=== PATIENT | male | born 1980 | race American Indian/Alaskan Native ===

== ENCOUNTER 2017-10-04 18:49 | Emergency (ER) | payer SELFPAY ==
[2017-10-04 18:55] VITALS: BP 149/108
[2017-10-04] MEDS ORDERED: NACL 0.9% 1000 ML 1,000 ML IV ONE (18:56)
[2017-10-04 19:29] LABS: Basophils # (Auto) 0.1 K/mm3 (0.0-0.1); Basophils % (Auto) 0.8 % (0.0-1.8); Eosinophils # (Auto) 0.2 K/mm3 (0.0-0.4); Eosinophils % (Auto) 1.9 % (0.0-4.3); Hematocrit 47.6 % (35.5-45.6); Hemoglobin 16.5 gm/dl (11.8-15.2); Lymphocytes # (Auto) 2.6 K/mm3 (1.2-5.4); Lymphocytes % (Auto) 28.7 % (13.4-35.0); Mean Corpuscular HGB Conc 35 % (32-34); Mean Corpuscular Hemoglobin 31 pg (28-32); Mean Corpuscular Volume 89 fl (84-94); Monocytes # (Auto) 0.4 K/mm3 (0.0-0.8); Monocytes % (Auto) 4.8 % (0.0-7.3); Platelet Count 310 K/mm3 (140-440); Red Blood Count 5.36 M/mm3 (3.65-5.03); Red Cell Distribution Width 13.8 % (13.2-15.2)
[2017-10-04 19:41] LABS: Partial Thromboplastin Time 27.1 Sec. (24.2-36.6)
[2017-10-04 19:52] LABS: Alanine Aminotransferase 35 units/L (7-56); Albumin 4.5 g/dL (3.9-5); BUN/Creatinine Ratio 12; Blood Urea Nitrogen 11 mg/dL (9-20); Calcium 9.3 mg/dL (8.4-10.2); Hemolysis Index 26; Lipase 21 units/L (13-60)
--- NOTE | 2017-10-04 20:38 | Emergency Department Report ---
HPI - General Chief Complaint: GI Bleed Time Seen by Provider: 10/04/17 20:07 - HPI HPI: Room 4 The patient is a 37-year-old male presenting with a chief complaint of hematochezia. The patient states several months ago he had one episode of blood in the stool but resolved. The patient states he never sought medical attention. The patient states last night and today he had 3 separate bowel movements or passing dark red blood. She denied rectal pain at that time. The patient states she's had mid epigastric abdominal pain for the past 2-3 months and makes him want to have a bowel movement. Patient also admits to heartburn for the same time frame. Incidentally the patient states he cleared his throat today and his sputum was dark brown prompting him to come to the emergency department. Patient denies having recent cough or fever. Location: Gastrointestinal system Duration: [See above] Quality: [See above] Severity: Moderate Modifying factors: [see above] Context: [see above] Mode of transportation: [not driving] ED Past Medical Hx - Past Medical History Previous Medical History?: No - Surgical History Past Surgical History?: No - Family History Family history: no significant - Social History Smoking Status: Current Every Day Smoker (1/7 pack per day) Substance Use Type: None (denies illicit drug use) - Medications Home Medications: Home Medications Medication Instructions Recorded Confirmed Last Taken Type Famotidine [Pepcid] 20 mg PO BID #30 tablet 10/04/17 Unknown Rx ED Review of Systems ROS: Stated complaint: BLOOD IN STOOL Other details as noted in HPI Constitutional: denies: fever Respiratory: other (brown sputum when clearing throat). denies: cough Cardiovascular: denies: chest pain Gastrointestinal: abdominal pain, hematochezia. denies: melena Genitourinary: denies: hematuria Physical Exam - Physical Exam Vital Signs: Vital Signs 10/04/17 18:50 Temperature 97.9 F Pulse Rate 82 Respiratory 18 Rate Blood Pressure 149/108 O2 Sat by Pulse 98 Oximetry Physical Exam: GENERAL: The patient is well-developed well-nourished male lying on stretcher not appearing to be in acute distress. [] HEENT: Normocephalic. Atraumatic. Extraocular motions are intact. Patient has moist mucous membranes. NECK: Supple. Trachea midline CHEST/LUNGS: Clear to auscultation. There is no respiratory distress noted. HEART/CARDIOVASCULAR: Regular. There is no tachycardia. There is no gallop rub or murmur. ABDOMEN: Abdomen is soft, nontender. Patient has normal bowel sounds. There is no abdominal distention. SKIN: There is no rash. There is no edema. There is no diaphoresis. NEURO: The patient is awake, alert, and oriented. The patient is cooperative. The patient has normal speech MUSCULOSKELETAL: There is no evidence of acute injury. RECTAL: Skin tag present. No external hemorrhoids seen. Faint guaiac positive brown stool ED Course Vital Signs 10/04/17 18:50 Temperature 97.9 F Pulse Rate 82 Respiratory 18 Rate Blood Pressure 149/108 O2 Sat by Pulse 98 Oximetry ED Medical Decision Making - Lab Data Result diagrams: 10/04/17 19:10 10/04/17 19:10 Laboratory Tests 10/04/17 10/04/17 10/04/17 19:10 19:10 19:10 WBC 9.2 RBC 5.36 H Hgb 16.5 H Hct 47.6 H MCV 89 MCH 31 MCHC 35 H RDW 13.8 Plt Count 310 Lymph % (Auto) 28.7 [place] % (Auto) 4.8 Eos % (Auto) 1.9 Baso % (Auto) 0.8 Lymph # 2.6 [place] # 0.4 Eos # 0.2 Baso # 0.1 Seg Neutrophils % 63.8 Seg Neutrophils # 5.9 PT 12.6 INR 0.90 APTT 27.1 D-Dimer < 136 Sodium 136 L Potassium 4.2 Chloride 97.7 L Carbon Dioxide 25 Anion Gap 18 BUN 11 Creatinine 0.9 Estimated GFR > 60 BUN/Creatinine Ratio 12 Glucose 102 H Calcium 9.3 Total Bilirubin 0.30 AST 24 ALT 35 Alkaline Phosphatase 71 Total Protein 7.2 Albumin 4.5 Albumin/Globulin Ratio 1.7 Lipase 21 Blood Type Antibody Screen 10/04/17 19:10 WBC RBC Hgb Hct MCV MCH MCHC RDW Plt Count Lymph % (Auto) [place] % (Auto) Eos % (Auto) Baso % (Auto) Lymph # [place] # Eos # Baso # Seg Neutrophils % Seg Neutrophils # PT INR APTT D-Dimer Sodium Potassium Chloride Carbon Dioxide Anion Gap BUN Creatinine Estimated GFR BUN/Creatinine Ratio Glucose Calcium Total Bilirubin AST ALT Alkaline Phosphatase Total Protein Albumin Albumin/Globulin Ratio Lipase Blood Type O POSITIVE Antibody Screen Negative - Radiology Data Radiology results: report reviewed (chest x-ray), image reviewed (chest x-ray) interpreted by me: Chest x-ray-no pneumothorax. Pulmonary nodule left upper lobe. - Differential Diagnosis internal hemorrhoids, peptic ulcer disease, pulmonary nodule, lung CA Critical care attestation.: If time is entered above; I have spent that time in minutes in the direct care of this critically ill patient, excluding procedure time. ED Disposition Clinical Impression: Rectal bleeding, Pulmonary nodule Disposition: OP ADMIT IP TO THIS HOSP Is pt being admited?: No Does the pt Need Aspirin: No Condition: Stable Instructions: Rectal Bleeding (ED), Pulmonary Nodules (ED) Additional Instructions: Return to the emergency department immediately should you develop worsening symptoms, fever, inability to tolerate food or liquid or any other concerns. Prescriptions: Famotidine [Pepcid] 20 mg PO BID #30 tablet Referrals: JOHNY HILLMAN MD [Staff Physician] - [place] (Dr. Deejay Pina is a primary physician. Please follow up with him to be established as a patient) ALDEN ZARAGOZA MD [Staff Physician] - 2-3 Days (Dr. Zaragoza is a ordnance engineer. Please follow up with him for further evaluation of your pulmonary nodule) ROBY MOONEY MD [Staff Physician] - [facility] (Dr. Mooney is a collet driller. Please follow up with him for further evaluation of your rectal bleeding) Forms: Accompanied Note Time of Disposition: 21:00
--- NOTE | 2017-10-04 20:51 | XRay Report ---
FINAL REPORT EXAM: XR CHEST ROUTINE 2V HISTORY: dark brown sputum TECHNIQUE: Frontal and lateral chest x-ray. PRIORS: None. FINDINGS: Cardiac and mediastinal silhouette within normal limits. Lungs are normally expanded, without significant vascular congestion. Probable calcified granuloma projected in left upper lobe. No focal consolidation, pleural effusion or apparent pneumothorax. Bony thorax grossly unremarkable. IMPRESSION: 1. No acute consolidation.
== END 2017-10-04 21:26 | disposition admitted as inpatient to this hospital (09) ==
LOC: ED 18:49
DX: K62.5 Hemorrhage of anus and rectum (principal); R91.1 Solitary pulmonary nodule; F17.200 Nicotine dependence, unspecified, uncomplicated
CPT/HCPCS: 36415; 71046; 80053; 82271; 83690; 85025; 85379; 85610; 85730; 86850; 86900; 86901; 99283